=== PATIENT | female | born 1975 | race Caucasian/White ===

== ENCOUNTER 2016-09-07 03:09 | Emergency (ER) | payer SELFPAY ==
--- NOTE | 2016-09-07 05:46 | ER Document Report ---
[id number] Notes: Patient is a 41-year-old female presents with complaints of nasal congestion, cough, and sore throat. She's had subjective fevers. She's not checked her temperature at home. She's had some bodyaches and chills. Symptoms started yesterday. No vomiting. No diarrhea. 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 She did not have a flu shot this year. She takes no medications. She does have a previous history of asthma. TRAVEL OUTSIDE OF THE [place] IN LAST 30 DAYS: Yes - Related Data Allergies/Adverse Reactions: iodine Allergy (Verified 09/07/16 03:30) Past Medical History - Social History Smoking Status: Current Every Day Smoker Cigarette use (# per day): Yes Chew tobacco use (# tins/day): No Frequency of alcohol use: None Drug Abuse: None Family History: Reviewed & Not Pertinent Patient has suicidal ideation: No Patient has homicidal ideation: No Renal/ Medical History: Denies: Hx Peritoneal Dialysis Past Surgical History: Reports: Hx Cholecystectomy Review of Systems - Review of Systems Notes: My Normal Review Basic REVIEW OF SYSTEMS: CONSTITUTIONAL : subjective fever. Bodyaches EENT: Nasal congestion. CARDIOVASCULAR: Denies chest pain. RESPIRATORY: Cough GASTROINTESTINAL: Denies abdominal pain. Denies nausea, vomiting, or diarrhea. Denies constipation. Last BM: MUSCULOSKELETAL: Denies neck or back pain or joint pain or swelling. SKIN: Denies rash or skin lesions. NEUROLOGICAL: Denies altered mental status or loss of consciousness. Denies headache. Denies weakness or paralysis or loss of use of either side. Denies problems with gait or speech. Denies sensory or motor loss. ALL OTHER SYSTEMS REVIEWED AND NEGATIVE. Physical Exam - Vital signs Vitals: Temp Pulse Resp BP Pulse Ox 98.5 F 72 16 107/62 98 09/07/16 06:39 09/07/16 06:39 09/07/16 06:39 09/07/16 06:39 09/07/16 06:39 - Notes Notes: General Appearance: Well nourished, alert, cooperative, no acute distress, mild obvious discomfort. Vitals: reviewed, See vital signs table. Head: no swelling or tenderness to the head Eyes: PERRL, EOMI, Conjuctiva clear Mouth: No decreasd moisture Nose: Moderate amount nasal congestion on exam. Throat: Mild pharyngeal erythema. No tonsillar enlargement. No exudates. Neck: Supple, no neck tenderness, No thyromegaly Lungs: No wheezing, No rales, No rhonci, No accessory muscle use, good air exchange bilaterally. Heart: Normal rate, Regular rythm, No murmur, no rub Abdomen: Normal BS, soft, No rigidity, No abdominal tenderness, No guarding, no rebound, no abdominal masses, no organomegaly Extremities: strength 5/5 in all extremities, good pulses in all extremities, no swelling or tenderness in the extremities, no edema. Skin: warm, dry, appropriate color, no rash Neuro: speech clear, oriented x 3, normal affect, responds appropriately to questions. Course - Vital Signs Vital signs: Temp Pulse Resp BP Pulse Ox 98.5 F 72 16 107/62 98 09/07/16 06:39 09/07/16 06:39 09/07/16 06:39 09/07/16 06:39 09/07/16 06:39 - Transfer of Care Notes: 09/07/16 06:50 Patient's strep test was negative. Her symptoms seem very consistent with flu. I suspect that she try does have influenza. This time will treat patient symptomatically. We'll give her some medication for cough and pain. I encourage her drink lots of liquids. Encouraged return to ER she has difficulty breathing, high fevers, or feels that she is worsening. Patient agrees with plan will be discharged home. Dictation of this chart was performed using voice recognition software; therefore, there may be some unintended grammatical errors. Discharge - Discharge Clinical Impression: URI (upper respiratory infection) Qualifiers: URI type: unspecified URI Qualified Code(s): J06.9 - Acute upper respiratory infection, unspecified Condition: Good Disposition: HOME, SELF-CARE Instructions: Oral Narcotic Medication ([facility]) Additional Instructions: PLease return to the ER immediately if you develop fevers, difficulty breathing , or feel that your symptoms are worsening. Please follow up with a doctor in 2 days if your symptoms are not improving. Prescriptions: Hydrocodone Bit/Homatropine [Hycodan Syrup 5-1.5 mg/5 ml Ud Cup] 5 ml PO Q4HP PRN #75 ml PRN Reason: Forms: Smoking Cessation Education, Return to Work
[2016-09-07 06:40] VITALS: BP 107/62
== END 2016-09-07 06:30 | disposition home or self-care (01) ==
LOC: ER 03:09
DX: J06.9 Acute upper respiratory infection, unspecified (principal); R09.81 Nasal congestion; R05 Cough; J02.9 Acute pharyngitis, unspecified; R68.83 Chills (without fever); J45.909 Unspecified asthma, uncomplicated; F17.210 Nicotine dependence, cigarettes, uncomplicated
CPT/HCPCS: 87070; 87880; 99283

== ENCOUNTER 2019-01-11 16:46 | Emergency (ER) | payer MEDICAID ==
--- NOTE | 2019-01-11 17:23 | ER Document Report ---
ED Medical Screen (RME) - General Chief Complaint: Chest Pain Stated Complaint: CHEST PAIN Time Seen by Provider: 01/11/19 17:21 TRAVEL OUTSIDE OF THE [place] IN LAST 30 DAYS: No - HPI Notes: 01/11/19 17:22 Patient is a 43-year-old female with a history of tobacco abuse, GERD, anxiety, and panic attacks who presents complaining of sternal chest heaviness that began about 2 hours ago. Patient states that on occasion she will feel discomfort in her back, but the pain does not radiate otherwise. She is not aware of anything that worsens her pain. She has not had any associated shortness of breath or d yspnea on exertion. She is eating and drinking without a multi-. She is urinating normally. No other concerns or complaints. Denies any prolonged immobilization, distance travel, recent surgery/trauma, personal cancer history, hormone use, or previous DVT/PE. Denies [place], fever, neck pain, URI, SOB, Abd pain, dysuria, or rash. I have treated and performed a rapid initial assessment of this patient. A comprehensive ED assessment and evaluation of the patient, analysis of test results and completion of medical decision making process will be conducted by additional ED providers. PHYSICAL EXAMINATION: GENERAL: Well-appearing, well-nourished and in no acute distress. A&Ox4. Answers questions appropriately. LUNGS: Breath sounds clear to auscultation bilaterally and equal. No wheezes rales or rhonchi. HEART: Regular rate and rhythm without murmurs, rubs, gallops. Extremities: No cyanosis, clubbing, or edema b/l. Baylee negative bilaterally. No lower extremity asymmetry. NEUROLOGICAL: Normal speech, normal gait. PSYCH: Normal mood, normal affect. - Related Data Allergies/Adverse Reactions: iodine Allergy (Verified 01/11/19 17:17) Past Medical History - Social History Frequency of alcohol use: None Drug Abuse: None Renal/ Medical History: Denies: Hx Peritoneal Dialysis GI Medical History: Reports: Hx Gastroesophageal Reflux Disease Past Surgical History: Reports: Hx Cholecystectomy, Hx Gynecologic Surgery - ovarian cyst Physical Exam - Vital signs Vitals: Temp Pulse Resp Pulse Ox 98.1 F 75 16 99 01/11/19 17:15 01/11/19 17:15 01/11/19 17:15 01/11/19 17:15 Course - Vital Signs Vital signs: Temp Pulse Resp BP Pulse Ox 98.1 F 75 16 99 01/11/19 17:15 01/11/19 17:15 01/11/19 17:15 01/11/19 17:15
[2019-01-11 18:11] LABS: ABSOLUTE EOSINOPHILS # (AUTO) 0.1 10^3/uL (0.0-0.6); ABSOLUTE LYMPHOCYTES (AUTO) 2.1 10^3/uL (0.5-4.7); ABSOLUTE MONOCYTES (AUTO) 0.7 10^3/uL (0.1-1.4); ABSOLUTE NEUT (AUTO) 4.9 10^3/uL (1.7-8.2); BASOPHILS % (AUTO) 0.5 % (0-2); EOSINOPHILS % (AUTO) 0.7 % (0-6); HEMATOCRIT 42.5 % (36.0-47.0); HEMOGLOBIN 14.4 g/dL (12.0-15.5); LYMPHOCYTES % (AUTO) 27.5 % (13-45); MEAN CORPUSCULAR HEMOGLOBIN 29.6 pg (27.0-33.4); MEAN CORPUSCULAR HGB CONC 33.9 g/dL (32.0-36.0); MEAN CORPUSCULAR VOLUME 88 fl (80-97); MONOCYTES % (AUTO) 8.8 % (3-13); PLATELET COUNT 298 10^3/uL (150-450); RED BLOOD COUNT 4.85 10^6/uL (3.72-5.28); RED CELL DISTRIBUTION WIDTH 13.2 % (11.5-14.0); SEGMENTED NEUTROPHILS % (AUTO) 62.5 % (42-78); TOTAL CELLS COUNTED % (AUTO) 100 %; WHITE BLOOD COUNT 7.8 10^3/uL (4.0-10.5)
--- NOTE | 2019-01-11 18:12 | RADIOLOGY REPORT (SQ) ---
EXAM DESCRIPTION: CHEST SINGLE VIEW COMPLETED DATE/TIME: 01/11/2019 5:33 pm REASON FOR STUDY: CP COMPARISON: None. NUMBER OF VIEWS: One view. TECHNIQUE: Single frontal radiographic view of the chest acquired. LIMITATIONS: None. FINDINGS: LUNGS AND PLEURA: No opacities, masses or pneumothorax. No pleural effusion. MEDIASTINUM AND HILAR STRUCTURES: No masses. Contour normal. HEART AND VASCULAR STRUCTURES: Heart normal in size. Normal vasculature. BONES: No acute findings. HARDWARE: None in the chest. OTHER: No other significant finding. IMPRESSION: NO SIGNIFICANT RADIOGRAPHIC FINDING IN THE CHEST. TECHNICAL DOCUMENTATION: JOB ID: [id number] [employer]- All Rights Reserved Reading location - IP/workstation name: [email or web address]
[2019-01-11 18:30] LABS: ALANINE AMINOTRANSFERASE 102 U/L (9-52); ALBUMIN 4.6 g/dL (3.5-5.0); ALKALINE PHOSPHATASE 108 U/L (38-126); ANION GAP 12 (5-19); ASPARTATE AMINO TRANSFERASE 211 U/L (14-36); BILIRUBIN,DIRECT 0.4 mg/dL (0.0-0.4); BILIRUBIN,TOTAL 0.8 mg/dL (0.2-1.3); BLOOD UREA NITROGEN 13 mg/dL (7-20); CALCIUM 9.5 mg/dL (8.4-10.2); CARBON DIOXIDE 29 mmol/L (22-30); CHLORIDE 102 mmol/L (98-107); GLUCOSE 120 mg/dL (75-110); POTASSIUM 4.1 mmol/L (3.6-5.0); SODIUM 142.5 mmol/L (137-145); TOTAL PROTEIN 7.1 g/dL (6.3-8.2)
--- NOTE | 2019-01-11 18:51 | ER Document Report ---
ED General - General Chief Complaint: Chest Pain Stated Complaint: CHEST PAIN Time Seen by Provider: 01/11/19 17:21 Mode of Arrival: Ambulatory Information source: Patient, [facility] Records Notes: Patient is a 43-year-old female with a history of tobacco abuse, GERD, anxiety, and panic attacks who presents complaining of sternal chest heaviness that began about 3.5 hours prior to arrival while driving.. Patient states that on occasion she will feel discomfort in her low back, but the pain does not radiate otherwise. She is not aware of anything that worsens her pain. She has not had any associated shortness of breath or dyspnea on exertion. She is eating and drinking without a multi-. She is urinating normally. No other concerns or complaints. Denies any prolonged immobilization, distance travel, recent surgery/trauma, personal cancer history, hormone use, or previous DVT/PE. De nies [place], fever, neck pain, URI, SOB, Abd pain, dysuria, or rash. Patient did take 0.75 mg of Klonopin which she now states has helped. She is currently rating her pain as a 1 out of 5. Patient reports prior similar symptoms and a stress test approximately 5 years ago which she reports to be normal. Patient does report a recent nonproductive cough. Patient is visiting from out of town. TRAVEL OUTSIDE OF THE [place] IN LAST 30 DAYS: No - HPI Onset: Just prior to arrival Onset/Duration: Sudden Quality of pain: Other - heaviness Severity: Mild Pain Level: 1 Associated symptoms: Chest pain, Nonproductive cough, Nausea. denies: Fever, Hurts to breath, Leg swelling, Vomiting, Shortness of breath, Sweating, Weakness Exacerbated by: Denies Relieved by: Denies Similar symptoms previously: Yes Recently seen / treated by doctor: No - Related Data Allergies/Adverse Reactions: iodine Allergy (Verified 01/11/19 17:17) Past Medical History - General Information source: Patient - Social History Smoking Status: Current Every Day Smoker Cigarette use (# per day): Yes - 10 Smoking Education Provided: Yes - Smoking cessation counseling was provided for 4 minutes at the bedside Frequency of alcohol use: None Drug Abuse: None Lives with: Family Family History: Reviewed & Not Pertinent Patient has suicidal ideation: No Patient has homicidal ideation: No Renal/ Medical History: Denies: Hx Peritoneal Dialysis GI Medical History: Reports: Hx Gastroesophageal Reflux Disease Psychiatric Medical History: Reports: Hx Anxiety Past Surgical History: Reports: Hx Cholecystectomy, Hx Gynecologic Surgery - ovarian cyst Review of Systems - Review of Systems Notes: REVIEW OF SYSTEMS: CONSTITUTIONAL : Denies fever, chills, or sweats. Denies recent illness. Denies weight loss, recent hospitalizations. EENT: Denies visual changes, eye pain. Denies sore throat, oral lesions, difficulty swallowing. CARDIOVASCULAR: + chest pain. Denies palpitations. Denies lower extremity edema. RESPIRATORY: + cough. Denies shortness of breath, wheezing. GASTROINTESTINAL: Denies abdominal pain or distention. Denies vomiting, or diarrhea. Denies blood in vomitus, stools, or per rectum. Denies black, tarry stools. Denies constipation. GENITOURINARY: Denies difficulty urinating, painful urination, frequency, blood in urine, or vaginal discharge. MUSCULOSKELETAL: Denies back or neck pain or stiffness. Denies joint pain or swelling. SKIN: Denies rash, lesions or sores. HEMATOLOGIC : Denies easy bruising or bleeding. LYMPHATIC: Denies swollen glands. NEUROLOGICAL: Denies confusion or altered mental status. Denies loss of consciousness. Denies dizziness or lightheadedness. Denies headache. Denies weakness or paralysis. Denies problems difficulty with ambulation, slurred spe ech. Denies sensory loss, numbness, or tingling. Denies seizures. PSYCHIATRIC: + anxiety or stress. Denies depression, suicidal ideation, or homicidal ideation. Denies visual or auditory hallucinations. Physical Exam - Vital signs Vitals: Temp Pulse Resp Pulse Ox 98.1 F 75 16 99 01/11/19 17:15 01/11/19 17:15 01/11/19 17:15 01/11/19 17:15 - Notes Notes: PHYSICAL EXAMINATION: GENERAL: Well-appearing, well-nourished and in no acute distress. HEAD: Atraumatic, normocephalic. EYES: Pupils equal round and reactive to light, extraocular movements intact, conjunctiva are normal. ENT: Nares patent, oropharynx clear without exudates. Moist mucous membranes. NECK: Normal range of motion, supple without lymphadenopathy LUNGS: Breath sounds clear to auscultation bilaterally and equal. No wheezes rales or rhonchi. HEART: Regular rate and rhythm without murmurs ABDOMEN: Soft, nontender, nondistended abdomen. No guarding, no rebound. No masses appreciated. Female : deferred Musculoskeletal: Normal range of motion, no pitting or edema. No cyanosis. NEUROLOGICAL: Cranial nerves grossly intact. Normal speech, normal gait. Normal sensory, motor exams PSYCH: Normal mood, normal affect. SKIN: Warm, Dry, normal turgor, no rashes or lesions noted. Course - Re-evaluation Re-evalutation: Laboratory 01/11/19 01/11/19 01/11/19 17:33 17:33 17:33 WBC 7.8 RBC 4.85 Hgb 14.4 Hct 42.5 MCV 88 MCH 29.6 MCHC 33.9 RDW 13.2 Plt Count 298 Seg Neutrophils % 62.5 Lymphocytes % 27.5 Monocytes % 8.8 Eosinophils % 0.7 Basophils % 0.5 Absolute Neutrophils 4.9 Absolute Lymphocytes 2.1 Absolute Monocytes 0.7 Absolute Eosinophils 0.1 Absolute Basophils 0.0 Sodium 142.5 Potassium 4.1 Chloride 102 Carbon Dioxide 29 Anion Gap 12 BUN 13 Creatinine 0.69 Est GFR ( Amer) > 60 Est GFR (Non-Af Amer) > 60 Glucose 120 H Calcium 9.5 Total Bilirubin 0.8 Direct Bilirubin 0.4 Neonat Total Bilirubin Not Reportable Neonat Direct Bilirubin Not Reportable Neonat Indirect Bili Not Reportable AST 211 H ALT 102 H Alkaline Phosphatase 108 Troponin I < 0.012 Total Protein 7.1 Albumin 4.6 Serum HCG, Qual 01/11/19 01/11/19 01/11/19 17:33 17:33 19:40 WBC RBC Hgb Hct MCV MCH MCHC RDW Plt Count Seg Neutrophils % Lymphocytes % Monocytes % Eosinophils % Basophils % Absolute Neutrophils Absolute Lymphocytes Absolute Monocytes Absolute Eosinophils Absolute Basophils Sodium Potassium Chloride Carbon Dioxide Anion Gap BUN Creatinine Est GFR ( Amer) Est GFR (Non-Af Amer) Glucose Calcium Total Bilirubin Direct Bilirubin Neonat Total Bilirubin Neonat Direct Bilirubin Neonat Indirect Bili AST ALT Alkaline Phosphatase Troponin I Cancelled < 0.012 Total Protein Albumin Serum HCG, Qual NEGATIVE Chest X-Ray 01/11/19 17:21 IMPRESSION: NO SIGNIFICANT RADIOGRAPHIC FINDING IN THE CHEST. Abdomen Ultrasound 01/11/19 19:16 IMPRESSION: Fatty infiltration of the liver Dilated common duct which may be as result of cholecystectomy Temp Pulse Resp BP Pulse Ox 98.7 F 75 21 H 108/68 98 01/11/19 20:08 01/11/19 17:15 01/11/19 20:08 01/11/19 20:08 01/11/19 20:08 Patient is a 43-year-old female with a history of tobacco abuse, GERD, anxiety, and panic attacks who presents complaining of sternal chest heaviness that began about 3.5 hours prior to arrival while driving.. Patient states that on occasion she will feel discomfort in her low back, but the pain does not radiate otherwise. She is not aware of anything that worsens her pain. Vital signs reviewed and within normal limits. Patient was placed on surveillance system monitor and EKG was obtained which showed the patient be in normal sinus rhythm and without ST elevation, T wave inversion. Patient's EKG is consistent with left ventricular hypertrophy. Cardiac enzymes including delta troponin with were within normal limits. Patient was found to have mild elevation in her LFTs which she reports is not a new finding for her. Ultrasound of the abdomen was obtained and showed fatty infiltration of the liver. Patient was provided copies of her imaging and lab work performed today to bring to her primary care physician at home. Patient was evaluated and treated as appropriate for the patient's presenting symptoms and complaint, with consideration of any critical or life threatening conditions that may be associated with their obtained history and exam as noted above. All results were discussed with patient. Patient provided the opportunity to ask questions, and express concerns. Patient was educated on treatments based on their presumed diagnosis as noted above. At this time we will discharge the patient with return precautions and follow-up recommendations. Verbal discharge instructions given a the bedside. Medication warnings reviewed. Patient is in agreement with this plan and has verbalized understanding of return precautions. After careful consideration I feel that that patient can be safely discharged from the emergency department, they were advised to followup with a primary care physician in 2-3 days. Dictation on this chart was performed using voice recognition software and may result in unintended grammatical, spelling, syntax or errors. 01/11/19 20:40 HEART Score: History-0 ECG-0 Age-0 Risk Factors-0 Troponin Total: 1 If HEART score is = 3 AND both troponin measurements are normal, the 30 day risk of a major adverse cardiac event (all-cause mortality, myocardial infarction or need for coronary revascularization) is < 1% (Sensitivity 100%, NPV 100%). Chest pain in a patient without evidence of cardiac or other serious etiology on workup today. I discussed with patient that, based on their age, risk factors and emergency department testing today, the likelihood that their symptoms are related to a heart attack is very low (estimated risk of heart attack or over the next 30 days of less than 1%). The patient demonstrates decision making capacity and has verbalized an understanding of these risks to me. Based on this, the patient has chosen to follow-up as an outpatient. Usual chest pain return precautions reviewed. The patient states understanding and agreement with this plan. 01/12/19 03:11 01/12/19 03:12 - Vital Signs Vital signs: Temp Pulse Resp BP Pulse Ox 98.7 F 75 21 H 108/68 98 01/11/19 20:08 01/11/19 17:15 01/11/19 20:08 01/11/19 20:08 01/11/19 20:08 - Laboratory Result Diagrams: 01/11/19 17:33 01/11/19 17:33 Laboratory results interpreted by me: 01/11/19 17:33 Glucose 120 H AST 211 H ALT 102 H - Diagnostic Test Radiology reviewed: Image reviewed, Reports reviewed - EKG Interpretation by Me EKG shows normal: Sinus rhythm Rate: Normal Voltage: Consistant with LVH When compared to previous EKG there are: Previous EKG unavailable Discharge - Discharge Clinical Impression: Fatty liver, Elevated LFTs, Left ventricular hypertrophy, Tobacco dependence Chest pain Qualifiers: Chest pain type: unspecified Qualified Code(s): R07.9 - Chest pain, unspecified Condition: Good Disposition: HOME, SELF-CARE Instructions: Chest Pain of Unclear Cause ([facility]), Liver Function Abnormality ([facility]) Additional Instructions: Your ultrasound showed a fatty liver. He also have some elevation in your liver enzymes. When you return home please follow-up with your primary care physician for repeat evaluation. You were seen today for chest pain. The exact cause of your pain is unclear. However, based on your cardiac enzyme testing, chest x-ray, and EKG it does not appear that it is from an immediately life-threatening cause at this time. Al though your testing here is normal is critical that you follow-up with your primary care physician for continued evaluation of this chest pain and possible stress testing. I recommended you see your physician within the next 24-48 hours to be evaluated for consideration of a stress test. Please return to emergency department immediately if you have worsening of your chest pain, shortness of breath, vomiting, become unable to exert yourself due to pain or difficulty breathing, you pass out, or have any pain that radiates into your arms, jaw, or back. Please also return if you have any additional symptoms that are concerning to you. Forms: Smoking Cessation Education
[2019-01-11] MEDS ORDERED: ASPIRIN 81 MG TABLET, CHEWABLE PO ONE (19:15)
--- NOTE | 2019-01-11 19:46 | EKG REPORT ---
SEVERITY:- ABNORMAL ECG - SINUS RHYTHM LEFT VENTRICULAR HYPERTROPHY : Confirmed by: Jennifer Ortega MD 11-Jan-2019 19:45:36
--- NOTE | 2019-01-11 20:29 | RADIOLOGY REPORT (SQ) ---
EXAM DESCRIPTION: Ultrasound abdomen limited Completed date time 01/11/2019 at 7:52 PM CLINICAL HISTORY: 43 years Female elevated lfts epigastric pain COMPARISON: None. TECHNIQUE: Transabdominal grayscale imaging were performed to evaluate the right upper quadrant. FINDINGS: The liver is echogenic consistent with fatty infiltration. No focal lesions are noted. Patent hepatopedal portal vein. Unremarkable right kidney. Pancreas is unremarkable. The aorta is normal in caliber. Gallbladder surgically absent. Common duct measures 8 mm. IMPRESSION: Fatty infiltration of the liver Dilated common duct which may be as result of cholecystectomy
[2019-01-11 20:46] VITALS: BP 108/68
== END 2019-01-11 20:30 | disposition home or self-care (01) ==
LOC: ER 16:46
DX: K76.0 Fatty (change of) liver, not elsewhere classified (principal); I51.7 Cardiomegaly; R07.9 Chest pain, unspecified; R94.5 Abnormal results of liver function studies; F17.210 Nicotine dependence, cigarettes, uncomplicated; Z90.49 Acquired absence of other specified parts of digestive tract
CPT/HCPCS: 36415; 71045; 76705; 80053; 84484; 84703; 85025; 93005; 93010; 99284; 99406